=== PATIENT | female | born 1950 | race Caucasian/White ===

== ENCOUNTER 2017-03-01 22:42 | Emergency (ER) | payer MEDICARE ==
--- NOTE | 2017-03-02 00:50 | ED ---
tato Choudhary Timothy, scribed for Franko Colvin MD on 03/02/17 at 0045 . Complex/Multi-Sys Presentation - HPI Summary HPI Summary: Scarlett Gleason is a 66 yo female presenting to [facility] with 2/10 pain at the injection site of a PNA vaccine in her left arm, which she received at 1430 03/02, which has spread to the lateral left side of her chest. She also c/o tightness in her axilla and left face in the past 45 minutes, worsening. Her tightness has resolved in the ED. Her MHx includes [place] palsey, TB as a child, bronchitis. 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 - Surgical History Surgery Procedure, Year, and Place: HX [facility] Infectious Disease History: Yes Infectious Disease History: Reports: Hx Tuberculosis Denies: Traveled Outside the [place] in Last 30 Days - Family History Known Family History: Positive: Cardiac Disease, Hypertension, Diabetes - Social History Alcohol Use: Occasionally Substance Use Type: Reports: None Smoking Status (MU): Never Smoked Tobacco Review of Systems Constitutional: Negative Eyes: Negative ENT: Negative Cardiovascular: Negative Respiratory: Negative Gastrointestinal: Negative Genitourinary: Negative Musculoskeletal: Other - left arm pain radiating into lateral left chest Positive: Other - tightness in her left axilla and face - resolved Skin: Negative Neurological: Negative Psychological: Normal All Other Systems Reviewed And Are Negative: Yes Physical Exam Triage Information Reviewed: Yes Vital Signs On Initial Exam: Initial Vitals Temp Pulse Resp BP Pulse Ox 97.3 F 103 14 149/91 98 03/01/17 22:46 03/01/17 22:46 03/01/17 22:46 03/01/17 22:46 03/01/17 22:46 Vital Signs Reviewed: Yes Appearance: Positive: Well-Appearing, No Pain Distress Skin: Positive: Warm - area of mild warmth and tenderness at injection site safety coordinator/Face: Positive: Normal Head/Face Inspection Eyes: Positive: DEONDRE ENT: Positive: Hearing grossly normal Neck: Positive: Supple Respiratory/Lung Sounds: Positive: Clear to Auscultation, Breath Sounds Present Cardiovascular: Positive: RRR Diagnostics - Vital Signs Vital Signs Temp Pulse Resp BP Pulse Ox 03/01/17 22:49 97.3 F 103 14 149/91 99 03/01/17 22:46 97.3 F 103 14 149/91 98 - Laboratory Lab Statement: Any lab studies that have been ordered have been reviewed, and results considered in the medical decision making process. Complex Multi-Symp Course/Dx Assessment/Plan: Scarlett Gleason is a 66 yo female presenting to [facility] with pain in her left arm at the site of a PNA vaccine radiating into her left lateral chest with tightness in her left face and axilla. After clinical examination in which she claimed the tightness had resolved, she will be discharged home with localized allergic reaction and appropriate instructions. - Diagnoses Provider Diagnoses: Allergic reaction Is Visit Related: No Discharge - Discharge Plan Condition: Stable Disposition: HOME Patient Education Materials: General Allergic Reaction (ED) Referrals: Aureliano Salcido MD [Primary Care Provider] - 2 Days Additional Instructions: Please follow up with your primary care physician regarding your visit to the emergency department today. Return to the emergency department with any new or recurring symptoms. The documentation as recorded by the tato comer Timothy accurately reflects the service I personally performed and the decisions made by me, Franko Colvin MD.
[2017-03-02 01:08] VITALS: BP 144/93
== END 2017-03-02 01:06 | disposition home or self-care (01) ==
LOC: ED 22:42
DX: T80.62XA Other serum reaction due to vaccination, initial encounter (principal); T78.40XA Allergy, unspecified, initial encounter; X58.XXXA Exposure to other specified factors, initial encounter
CPT/HCPCS: 99281

== ENCOUNTER → 2017-04-05 21:25 | Emergency (ER) | payer MEDICARE ==
[2017-04-05 21:51] VITALS: BP 144/84
== END | disposition left against medical advice (07) ==
LOC: ED 21:25
DX: R50.9 Fever, unspecified (principal); Z53.21 Procedure and treatment not carried out due to patient leaving prior to being seen by health care provider

== ENCOUNTER 2017-04-28 13:37 | Emergency (ER) | payer MEDICARE ==
[2017-04-28 15:11] VITALS: BP 138/71
--- NOTE | 2017-04-28 15:27 | ED ---
Allergic Reaction/Systemic - HPI Summary HPI Summary: Patient presents with concerns of a reaction to a "israeli medicine pill" she took this AM. She has had a reaction like this in the past when she has taken vitamins. She felt nauseous and lightheaded. No SOB, CP, headache, vomiting, abdominal pain, rash, throat closure, or itching. 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 Negative: Abdominal Pain, Vomiting, Diarrhea Negative: Rash Negative: Headache, Weakness All Other Systems Reviewed And Are Negative: Yes Physical Exam - Summary Physical Exam Summary: Patient seated on stretcher in no acute distress. Triage Information Reviewed: Yes Vital Signs On Initial Exam: Initial Vitals Temp Pulse Resp BP Pulse Ox 97.2 F 69 20 143/85 100 04/28/17 14:10 04/28/17 14:10 04/28/17 14:10 04/28/17 14:10 04/28/17 14:10 Vital Signs Reviewed: Yes Appearance: Positive: Well-Appearing, No Pain Distress, Well-Nourished Skin: Positive: Warm, Skin Color Reflects Adequate Perfusion, Dry, Soft Head/Face: Positive: Normal Head/Face Inspection Eyes: Positive: EOMI, DEONDRE, Conjunctiva Clear ENT: Positive: Hearing grossly normal, Pharynx normal Neck: Positive: Supple, Nontender, No Lymphadenopathy Respiratory/Lung Sounds: Positive: Clear to Auscultation, Breath Sounds Present Cardiovascular: Positive: RRR Abdomen Description: Positive: Nontender, Soft Bowel Sounds: Positive: Present Musculoskeletal: Negative: Edema Left, Edema Right Neurological: Positive: Sensory/Motor Intact, Alert, Oriented to Person Place, Time, NV Bundle Intact Distally, Normal Gait Psychiatric: Positive: Affect/Mood Appropriate AVPU Assessment: Alert Diagnostics - Vital Signs Vital Signs Temp Pulse Resp BP Pulse Ox 04/28/17 15:10 76 18 138/71 100 04/28/17 14:12 96.6 F 71 20 143/85 100 04/28/17 14:10 97.2 F 69 20 143/85 100 - Laboratory Lab Statement: Any lab studies that have been ordered have been reviewed, and results considered in the medical decision making process. Allergic Reaction Course/Dx - Diagnoses Differential Diagnosis/HQI/PQRI: Positive: Airway Obstruction, Anaphylaxis, Angioedema, Erythema Nodosum, Local Allergic Reaction, Urticaria Provider Diagnoses: Sensitivity to medication Discharge - Discharge Plan Condition: Stable Disposition: HOME Patient Education Materials: Allergies (ED) Referrals: Aureliano Salcido MD [Primary Care Provider] - Additional Instructions: Please follow-up with your primary care provider if symptoms persist. Return to the emergency department if symptoms worsen.
== END 2017-04-28 15:15 | disposition home or self-care (01) ==
LOC: ED 13:37
DX: T50.995A Adverse effect of other drugs, medicaments and biological substances, initial encounter (principal); R11.0 Nausea; Y92.9 Unspecified place or not applicable; R42 Dizziness and giddiness
CPT/HCPCS: 99281

== ENCOUNTER 2018-07-25 11:42 | Emergency (ER) | payer MEDICARE ==
[2018-07-25] MEDS ORDERED: Acetaminophen TAB* 325 MG PO ONE (13:20)
[2018-07-25] MEDS ORDERED: NS 0.9% 1000 ML* 2,000 ML IV ONE (13:20)
--- NOTE | 2018-07-25 13:36 | ED ---
Syncope/Near Syncope - HPI Summary HPI Summary: Pt is a 68 y/o female who presents to the ED s/p near-syncopal episode. She states yesterday she hurt her neck while installing a shelf. Pt then went swimming in a [place], and the pain worsened throughout the day. This morning she woke up with a stiff and painful neck. She feels like her head is in a cotton ball. Pt was sitting in a chair when suddenly she blacked out, felt like she was going to pass out, and was diaphoretic and dizzy. She has had one prior syncopal episode from taking the herbal supplement Ashwagandha. She denies any LOC, CP, or SOB. Pt states she is now lightheaded and uncomfortable. She is worried because a friend recently had a blood infection after swimming in a [place]. Pt denies taking any pain medications, and today took magnesium, adrenal extract, fish oil, and vitamin B. Pt had an appointment with here PCP today at 15:00 but decided to come here due to the near-syncopal episode. - History Of Current Complaint Chief Complaint: EDNeckComplaint Time Seen by Provider: 07/25/18 12:56 Hx Obtained From: Patient Onset/Duration: Sudden Onset, Resolved Timing: Intermittent Episode Lasting Context: Unwitnessed Activity At Onset: At Rest Associated Head Trauma: No Aggravating Factor(s): Nothing Alleviating Factor(s): Nothing Associated Signs And Symptoms: Dizzy, Lightheadedness, Other - Neck pain - Allergies/Home Medications Allergies/Adverse Reactions: Allergies Allergy/AdvReac Type Severity Reaction Status Date / Time ashwagandha Allergy Nausea And Verified 07/25/18 11:51 Vomiting clindamycin Allergy Rash Verified 07/25/18 11:51 chemicals Allergy Altered Uncoded 07/25/18 11:51 Mental Status PMH/Surg Hx/FS Hx/Imm Hx Respiratory History: Reports: Hx Pneumonia, Other Respiratory Problems/ Disorders - bronchitis Musculoskeletal History: Reports: Other Musculoskeletal History - Hand problems Neurological History: 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 - Surgical History Surgery Procedure, Year, and Place: Lymph node removal, tonsillectomy Infectious Disease History: No Infectious Disease History: Reports: Hx Hepatitis, Hx Tuberculosis Denies: Traveled Outside the [place] in Last 30 Days - Family History Known Family History: Positive: Cardiac Disease - [place] -father 50 y/o, Hypertension, Diabetes, Other - CVA - father, grandmother - Social History Alcohol Use: Occasionally Hx Substance Use: No Substance Use Type: Reports: None Hx Tobacco Use: No Smoking Status (MU): Never Smoked Tobacco Review of Systems Negative: Chest Pain Negative: Shortness Of Breath Positive: Myalgia - Neck pain Neurological: Other - Dizziness, lightheadedness Positive: Syncope - Near All Other Systems Reviewed And Are Negative: Yes Physical Exam - Summary Physical Exam Summary: Appearance: Well-appearing, moderate pain distress, well-nourished Skin: Warm, color reflects adequate perfusion, dry Head: Normal Head/Face inspection, atraumatic Eyes: Conjunctiva clear ENT: Normal inspection Neck: Supple, no nodes, no JVD, tenderness to right lateral neck (trapezius) Respiratory: Lungs clear, normal breath sounds, no respiratory distress Cardio: RRR, No murmur, pulses normal, brisk capillary refill Abdomen: Soft, nontender Bowel sounds: Present Musculoskeletal: Strength Intact/ROM intact, no calf tenderness, no edema. Psychological: Normal Neuro: A&O x3, CN II-XII intact, motor function 5/5, sensation intact, cerebellar normal GCS: 15 Triage Information Reviewed: Yes Vital Signs On Initial Exam: Initial Vitals Temp Pulse Resp BP Pulse Ox 97.2 F 80 16 141/83 98 07/25/18 11:43 07/25/18 11:43 07/25/18 11:43 07/25/18 11:43 07/25/18 11:43 Vital Signs Reviewed: Yes Diagnostics - Vital Signs Vital Signs Temp Pulse Resp BP Pulse Ox 07/25/18 12:57 68 16 152/80 98 07/25/18 11:43 97.2 F 80 16 141/83 98 - Laboratory Result Diagrams: 07/25/18 14:47 07/25/18 14:47 Lab Statement: Any lab studies that have been ordered have been reviewed, and results considered in the medical decision making process. - Radiology CXR Radiology Interpretation Completed By: Radiologist - Hyperinflated lung davis without evidence of active cardiopulmonary disease. ED physician reviewed radiology report. - CT Brain CT CT Interpretation: No Acute Changes - NO ACUTE INTRACRANIAL PATHOLOGY. ED physician reviewed radiology report. CT Interpretation Completed By: Radiologist Cervical Spine CT CT Interpretation: No Acute Changes - 1. OSTEOPENIA. 2. DEGENERATIVE DISC DISEASE AND OSTEOARTHRITIS. 3. NO ACUTE OSSEOUS INJURY TO THE CERVICAL SPINE. ED physician reviewed radiology report. CT Interpretation Completed By: Radiologist - EKG 12:38 Cardiac Rate: NL - 65 bpm EKG Rhythm: Sinus Rhythm ST Segment: Normal Ectopy: None EKG Interpretation: nml AV/IV CT, nml QTc, and nml axis. No acute changes. EKG Comparison: No Significant Change - 08/11/14 National Institutes Of Health - NIH Scale Level of Consciousness: Alert/Keenly Responsive Ask Patient the Month and His/Her Age: Both Correct Ask Pt to Open/Close Eyes and Customs Opener Verifier Packer/Release Non-Paretic Hand: Both Correctly Best Gaze (Only Horizontal Eye Movement): Normal Visual Field Testing: No Visual Loss Facial Paresis-Pt to Smile & Close Eyes or Grimace Symmetry: Normal/Symmetrical Motor Function - Right Arm: No Drift-Holds 10 Seconds Motor Function - Left Arm: No Drift-Holds 10 Seconds Motor Function - Right Leg: No Drift-Holds 10 Seconds Motor Function - Left Leg: No Drift-Holds 10 Seconds Limb Ataxia-Must be out of Proportion to Weakness Present: Absent Sensory (Use Pinprick to Test Arms/Legs/Trunk/Face): Normal Best Language (Describe Picture, Name Items): No Aphasia Dysarthria (Read Several Words): Normal Extinction and Inattention: No Abnormality Total Score: 0 Re-Evaluation - Re-Evaluation First Eval Re-Evaluation Time: 16:48 Change: Improved Comment: Here with her sister. Pt has been up to the bathroom several times. Informed pt of imaging results. Pt wants to go home and have muscle relaxers. Second Eval Re-Evaluation Time: 18:30 Change: Worse Comment: Pt says right neck pain is worse, feels like muscle relaxant didnt work, and wants to try a narcotic. Third Eval Re-Evaluation Time: 19:40 Change: Improved Comment: Pain is relieved and she wants the narcotic prescribed. Course/Dx Course Of Treatment: Pt is a 68 y/o female who presents to the ED s/p near- syncopal episode. A CXR revealed Hyperinflated lung davis without evidence of active cardiopulmonary disease. A brain CT was negative. A cervical spine CT revealed OSTEOPENIA, DEGENERATIVE DISC DISEASE AND OSTEOARTHRITIS, NO ACUTE OSSEOUS INJURY TO THE CERVICAL SPINE. An EKG revealed normal rate of 65 bpm, nml AV/IV CT, nml QTc, and nml axis. - Diagnoses Provider Diagnoses: Cervical strain, Elevated BP without diagnosis of hypertension, Vasovagal syncope, Dehydration, Hyponatremia Discharge - Sign-Out/Discharge Documenting (check all that apply): Patient Departure - Discharge - Discharge Plan Condition: Stable Disposition: HOME Patient Education Materials: Cervical Strain (ED), Syncope (ED), Hypertension ( ED) Referrals: Aureliano Salcido MD [Primary Care Provider] - 2 Days Additional Instructions: We have given you a copy of your CT scans of your brain and neck, and also a copy of your chest x-ray. We have also given you a copy of your labs. We feel that your episode today was probably a vasovagal episode, possibly due to severe neck pain. He also may be slightly dehydrated. You were given Tylenol 650 mg the while you were in the ER. Your also given 2 L of normal saline IV hydration. We gave you 1 tablet of cyclobenzaprine 10 mg as a muscle relaxant. We also gave you a soft cervical collar that he may wear for comfort. We recommend that you bring a copy of these discharge instructions and your results to discuss with Dr. Salcido. Your blood pressures were also very elevated while here in the emergency department, the highest being 160/93. This may be due to pain but she will want to discuss this with Dr. Salcido also. Return to the emergency department for new or worsening symptoms - Attestation Statements Document Initiated by Scribe: Yes Documenting Scribe: Carol Leo Provider For Whom Shilo is Documenting (Include Credential): Farnaz Millan MD Scribe Attestation: Carol Choudhary, scribed for Farnaz Millan MD on 07/25/18 at 1944.
--- NOTE | 2018-07-25 14:37 | RAD ---
HISTORY: syncope, neck pain COMPARISONS: August 11, 2014 TECHNIQUE: Multiple contiguous axial CT scans were obtained of the head without intravenous contrast. FINDINGS: HEMORRHAGE/INFARCT: There is no hemorrhage or acute infarct. MASSES/SHIFT: There is no mass or shift. EXTRA-AXIAL SPACES: There are no extra-axial fluid collections. SULCI AND VENTRICLES: The sulci and ventricles are normal in size and position for the patient's stated age. CEREBRUM: There are no focal parenchymal abnormalities. BRAINSTEM: There are no focal parenchymal abnormalities. CEREBELLUM: There are no focal parenchymal abnormalities. VESSELS: The vessels are grossly normal. PARANASAL SINUSES: The paranasal sinuses are clear. ORBITS: The orbits are unremarkable. BONES AND SOFT TISSUE: No bone or soft tissue abnormalities are noted. OTHER: None IMPRESSION: NO ACUTE INTRACRANIAL PATHOLOGY.
--- NOTE | 2018-07-25 14:40 | RAD ---
Indication: Syncope, back pain 2 views of the chest including dual energy PA views demonstrate no mediastinal shift. Heart is of normal size and configuration. Lung davis appear clear. IMPRESSION: Hyperinflated lung davis without evidence of active cardiopulmonary disease.
--- NOTE | 2018-07-25 14:41 | RAD ---
HISTORY: syncope, pain COMPARISONS: None TECHNIQUE: Multiple contiguous axial CT scans were obtained of the cervical spine without intravenous contrast, with coronal and sagittal multiplanar reformations. FINDINGS: BRAIN: The visualized brain is unremarkable CENTRAL CANAL: Evaluation of the central canal is limited on CT technique; however, there is no obvious canalicular mass or epidural hemorrhage. ALIGNMENT: There is straightening with reversal of the normal cervical lordosis. There is trace anterolisthesis of C2 on C3. VERTEBRAL BODIES: There is diffuse osteopenia. Is multilevel anterolateral marginal osteophyte formation. There is no displaced fracture. There are sclerotic reactive endplate changes most pronounced at C4-C5 and C5-C6 and C6-C7. JOINTS: There is uncovertebral and facet osteoarthritis. MUSCULATURE: Unremarkable INTERVERTEBRAL DISCS: There is diffuse loss of intervertebral disc height. AXIAL IMAGES: C2-C3: There is no osseous neural foraminal narrowing or central canal stenosis. C3-C4: There is bilateral uncovertebral and facet hypertrophy with moderate bilateral neuroforaminal narrowing. There is no osseous central canal stenosis. C4-C5: There is bilateral uncovertebral and facet hypertrophy. There is severe bilateral neuroforaminal narrowing. There is no osseous central canal stenosis. C5-C6: There is bilateral uncovertebral and facet hypertrophy. There is severe right and moderate left neural foraminal narrowing. There is no osseous central canal stenosis. C6-C7: There is mild bilateral neuroforaminal narrowing. There is no osseous central canal stenosis. C7-T1: There is no osseous neural foraminal narrowing or central canal stenosis. SOFT TISSUES: The visualized soft tissues of the neck are unremarkable. The prevertebral fat stripe is preserved. OTHER: None. IMPRESSION: 1. OSTEOPENIA. 2. DEGENERATIVE DISC DISEASE AND OSTEOARTHRITIS. 3. NO ACUTE OSSEOUS INJURY TO THE CERVICAL SPINE.
[2018-07-25 15:00] LABS: ABS Basophils 0.1 10^3/ul (0-0.2); ABS Eosinophils 0 10^3/ul (0-0.6); ABS Lymphocytes 1.1 10^3/ul (1.0-4.8); ABS Monocytes 0.6 10^3/ul (0-0.8); ABS Neutrophils 9.7 10^3/ul (1.5-7.7); ABS Nucleated RBC 0 10^3/ul; Eosinophil % 0.1 % (0-6); Hematocrit 44 % (35-47); Hemoglobin 14.6 g/dl (12.0-16.0); Lymphocyte % 9.9 % (25-47); Mean Corpuscular HGB Conc 34 g/dl (31-36); Mean Corpuscular Hemoglobin 29 pg (27-31); Mean Corpuscular Volume 88 fL (80-97); Mean Platelet Volume 6.7 um3 (7.4-10.4); Nucleated Red Blood Cells % 0; Platelet Count 376 10^3/ul (150-450); Red Blood Count 4.97 10^6/ul (4.00-5.40); Red Cell Distribution Width 13 % (10.5-15); White Blood Count 11.5 10^3/ul (3.5-10.8)
[2018-07-25 15:12] LABS: INR 0.91 (0.77-1.02)
[2018-07-25 15:13] LABS: Urine Appearance Clear; Urine Blood Negative (Negative); Urine Color Yellow; Urine Ketones 1+ (Negative); Urine Protein Negative (Negative); Urine Specific Gravity 1.012 (1.010-1.030); Urine Urobilinogen Negative (Negative)
[2018-07-25 15:24] LABS: EGFR Non-African American 87.3 (>60)
[2018-07-25] MEDS ORDERED: Cyclobenzaprine TAB* 10 MG PO ONE (17:10)
[2018-07-25] MEDS ORDERED: HYDROcodone/ACETAMIN 5-325 MG* 1 TAB PO ONE (18:44)
[2018-07-25 19:45] VITALS: BP 165/93
== END 2018-07-25 19:45 | disposition home or self-care (01) ==
LOC: ED 11:42
DX: R42 Dizziness and giddiness (principal); E86.0 Dehydration; R55 Syncope and collapse; E87.1 Hypo-osmolality and hyponatremia; R03.0 Elevated blood-pressure reading, without diagnosis of hypertension; S16.1XXA Strain of muscle, fascia and tendon at neck level, initial encounter; X58.XXXA Exposure to other specified factors, initial encounter; Y92.9 Unspecified place or not applicable
CPT/HCPCS: 36415; 70450; 71046; 72125; 80053; 80307; 80320; 81003; 82140; 82550; 83605; 83735; 83880; 84443; 84484; 85025; 85379; 85610; 85730; 93005; 96360; 99283; A9270-GY; G0480